=== PATIENT | male | born 1975 | race Caucasian/White ===

== ENCOUNTER 2017-06-26 13:50 | Emergency (ER) | payer SELFPAY ==
[2017-06-26] MEDS ORDERED: REGLAN IV ONE (15:43)
[2017-06-26] MEDS ORDERED: TYLENOL PO ONE (15:44)
[2017-06-26] MEDS ORDERED: BENADRYL IV ONE (15:44)
[2017-06-26] MEDS ORDERED: NACL 0.9% 1000 ML 1,000 ML IV ONE (15:44)
--- NOTE | 2017-06-26 15:45 | Emergency Department Report ---
ED Headache HPI - General Chief Complaint: Headache Stated Complaint: HEAD INJURY Time Seen by Provider: 06/26/17 14:54 - History of Present Illness Initial Comments: 42-year-old male past medical history none presents with complaint of 3 weeks of persistent worsening headache. Denies any head trauma denies fever chills photo or phonophobia. Denies nausea vomiting neck rigidity abdominal pain chest pain. States the headache is bothersome and makes him feels anxious. Patient is [place]andan-speaking which I speak fluently. Denies any recent falls or head trauma. Quality: moderate Head Injury Location: frontal Recent Head Trauma: no recent headache/trauma Modifying Factors: improves with: cold therapy Associated Symptoms: denies symptoms Allergies/Adverse Reactions: Allergies No Known Allergies Allergy (Unverified 06/26/17 13:59) Home Medications: Ambulatory Orders Amoxicillin [Trimox CAP] 500 mg PO Q8H #21 capsule 06/26/17 Metoclopramide [Reglan] 10 mg PO TID PRN #9 tab 06/26/17 Naproxen [Naprosyn TAB] 375 mg PO BID PRN #30 tablet 06/26/17 ED Review of Systems ROS: Stated complaint: HEAD INJURY Other details as noted in HPI Constitutional: denies: chills, fever Eyes: denies: eye pain, eye discharge, vision change ENT: denies: ear pain, throat pain Respiratory: denies: cough, shortness of breath, wheezing Cardiovascular: denies: chest pain, palpitations Endocrine: no symptoms reported Gastrointestinal: denies: abdominal pain, nausea, diarrhea Genitourinary: denies: urgency, dysuria Musculoskeletal: denies: back pain, joint swelling, arthralgia Skin: denies: rash, lesions Neurological: headache. denies: weakness, paresthesias Psychiatric: denies: anxiety, depression Hematological/Lymphatic: denies: easy bleeding, easy bruising ED Past Medical Hx - Past Medical History Previous Medical History?: No - Surgical History Past Surgical History?: No - Social History Smoking Status: Current Every Day Smoker Substance Use Type: Alcohol - Medications Home Medications: Home Medications Medication Instructions Recorded Confirmed Last Taken Type Amoxicillin [Trimox CAP] 500 mg PO Q8H #21 capsule 06/26/17 Unknown Rx Metoclopramide [Reglan] 10 mg PO TID PRN #9 tab 06/26/17 Unknown Rx Naproxen [Naprosyn TAB] 375 mg PO BID PRN #30 tablet 06/26/17 Unknown Rx ED Physical Exam - General Limitations: No Limitations General appearance: alert, in no apparent distress - Head Head exam: Present: atraumatic, normocephalic - Eye Eye exam: Present: normal appearance, PERRL, EOMI - ENT ENT exam: Present: mucous membranes moist - Neck Neck exam: Present: normal inspection - Respiratory Respiratory exam: Present: normal lung sounds bilaterally. Absent: respiratory distress - Cardiovascular Cardiovascular Exam: Present: regular rate, normal rhythm. Absent: systolic murmur, diastolic murmur, rubs, gallop - GI/Abdominal GI/Abdominal exam: Present: soft, normal bowel sounds - Rectal Rectal exam: Present: deferred - Extremities Exam Extremities exam: Present: normal inspection - Back Exam Back exam: Present: normal inspection - Neurological Exam Neurological exam: Present: alert, oriented X3, CN II-XII intact, normal gait - Expanded Neurological Exam Expanded Patient oriented to: Present: person, place, time Cranial nerves: EOM's Intact: Normal, Facial Sensation: Normal Cerebellar function: Finger to Nose: Normal, Heel to Lara: Normal, Romberg: Normal Sensory exam: Upper Extremity Light Touch: Normal, Upper Extremity Pin Prick: Normal, Lower Extremity Light Touch: Normal, Lower Extremity Pin Prick: Normal Motor strength exam: RUE: 5, LUE: 5, RLE: 5, LLE: 5 Best Eye Response (Seymour): (4) open spontaneously Best Motor Response (Jarred): (6) obeys commands Best Verbal Response (Seymour): (5) oriented Jarred Total: 15 - Psychiatric Psychiatric exam: Present: normal affect, normal mood - Skin Skin exam: Present: warm, dry, intact, normal color. Absent: rash ED Course Vital Signs 06/26/17 13:59 Temperature 99 F Pulse Rate 113 H Respiratory 16 Rate Blood Pressure 119/83 O2 Sat by Pulse 94 Oximetry ED Medical Decision Making - Medical Decision Making A/P: Migraine headache 1-case discussed with Dr. Mcclellan for discharge 2-naproxen when necessary, Reglan when necessary 3-follow-up with primary care and neurology. I provided patient with follow-up information for both 4- I explained to patient that a CT head shows encephalomalacia and printed out information for him about migraine headaches and encephalomalacia in [place]an for him to understand. Cranial nerves 2, 3, 4, 5, 6, 7, 8,10, 11, 12 intact on clinical exam, patient is fully lucid awake alert and oriented 3 conversant. Denies any upper or lower extremity paresthesias and has 5/5 strength in bilateral upper and lower extremities on clinical exam. Critical care attestation.: If time is entered above; I have spent that time in minutes in the direct care of this critically ill patient, excluding procedure time. ED Disposition Clinical Impression: Migraine headache Qualifiers: Migraine type: without aura Status migrainosus presence: without status migrainosus Intractability: not intractable Qualified Code(s): G43.009 - Migraine without aura, not intractable, without status migrainosus Sinusitis Qualifiers: Sinusitis location: frontal Chronicity: acute Recurrence: non-recurrent Qualified Code(s): J01.10 - Acute frontal sinusitis, unspecified Disposition: - TO HOME OR SELFCARE Is pt being admited?: No Does the pt Need Aspirin: No Condition: Stable Instructions: Sinusitis (ED), Migraine Headache (ED), Acute Headache (ED), Naproxen (By mouth), Metoclopramide (By mouth) Additional Instructions: [email or web address] Prescriptions: Amoxicillin [Trimox CAP] 500 mg PO Q8H #21 capsule Metoclopramide [Reglan] 10 mg PO TID PRN #9 tab PRN Reason: Headache Naproxen [Naprosyn TAB] 375 mg PO BID PRN #30 tablet PRN Reason: Headache Referrals: [facility] [Outside] - 3-5 Days Forms: Work/School Release Form(ED) Time of Disposition: 17:51 Print Language: CAPE VERDEAN
--- NOTE | 2017-06-26 16:26 | Cat Scan Report ---
FINAL REPORT EXAM: CT HEAD/BRAIN WO CON HISTORY: anteriro headache, throbbing, severe TECHNIQUE: CT examination of the head without IV contrast PRIORS: None. FINDINGS: Mucosal thickening right frontal sinus with suggestion of nonspecific small fluid level. Mucosal thickening also noted in right frontoethmoidal recess. Other paranasal sinuses are clear as are the mastoid air cells and middle ear cavities. Abnormal asymmetric hypodensity is nonspecific in the anteromedial aspect of the right frontal lobe primarily involving subcortical white matter but also involving a small portion of cortex. There appears to be encephalomalacia and volume loss in this region suggesting an old chronic process. A small acute or subacute component cannot be excluded. Nonspecific scattered meningeal calcifications may be from prior infection or trauma. These are most prominent in a sulcus within the medial left parietal lobe. Bone windows demonstrate no acute fracture. The brain is without mass, mass effect, or hemorrhage. There is no extra-axial intracranial bleed, brain bleed, or midline shift. The ventricles and sulci are age-appropriate. IMPRESSION: Hypodensity appears chronic in the anterior medial right frontal lobe given encephalomalacia and volume loss. Since symptoms are anterior, consider follow-up brain MRI to exclude a subacute or acute component. Mucosal thickening right frontal sinus and right frontoethmoidal recess with suggestion of small fluid level in the right frontal sinus. This may reflect right frontal acute sinusitis Chronic appearing scattered punctate meningeal calcifications may be related to prior infection or trauma
[2017-06-26 18:13] VITALS: BP 104/66
== END 2017-06-26 18:12 | disposition home or self-care (01) ==
LOC: ED 13:50
DX: G43.009 Migraine without aura, not intractable, without status migrainosus (principal); J01.10 Acute frontal sinusitis, unspecified; F17.200 Nicotine dependence, unspecified, uncomplicated
CPT/HCPCS: 70450; 96361; 96374; 96375; 99283; J1200; J2765; J7030

== ENCOUNTER 2017-06-28 01:01 | Emergency (ER) | payer OTHER ==
[~2017-06-28 01:01] MED LIST: ADRENALIN ONE; CORDARONE IV ONE; NARCAN 2 MG/2 ML ONE; SODIUM BICARBONATE IV ONE
[2017-06-28] MEDS ORDERED: NACL 0.9% 1000 ML 2,000 ML ONE (01:13)
[2017-06-28] MEDS ORDERED: NACL 0.9% 1000 ML 1,000 ML IV ONE (01:18)
[2017-06-28] MEDS ORDERED: ATIVAN IV ONE (01:20)
--- NOTE | 2017-06-28 01:21 | Emergency Department Report ---
ED Altered Mental Status HPI - General Stated Complaint: CHEST PAIN Time Seen by Provider: 06/28/17 01:18 Source: carton wrapper - History of Present Illness Initial Comments: Episode of unresponsiveness brought to triage without pulse or spontaneous respirations recent history states recent ?cocaine use patient was seen here yesterday for migraine headaches brother speaks no Andorran language line was utilized says that patient denies drug or alcohol use was brought back to the ER today because he wasn't getting better patient was never able to give a history MD Complaint: altered mental status, decreased responsiveness -: unknown Severity: Unable to Determine Consistency of Symptoms: waxing and waning, unknown Associated Symptoms: denies other symptoms, other (no further history is available from the patient's family and patient is unresponsive) - Related Data Previous Rx's Medication Instructions Recorded Last Taken Type Amoxicillin [Trimox CAP] 500 mg PO Q8H #21 capsule 06/26/17 Unknown Rx Metoclopramide [Reglan] 10 mg PO TID PRN #9 tab 06/26/17 Unknown Rx Naproxen [Naprosyn TAB] 375 mg PO BID PRN #30 tablet 06/26/17 Unknown Rx Allergies Allergy/AdvReac Type Severity Reaction Status Date / Time No Known Allergies Allergy Verified 06/28/17 01:17 ED Review of Systems ROS: Stated complaint: CHEST PAIN Other details as noted in HPI Comment: Unobtainable due to pts medical conditions ED Past Medical Hx - Past Medical History Previous Medical History?: No - Social History Smoking Status: Current Every Day Smoker Substance Use Type: Alcohol - Medications Home Medications: Home Medications Medication Instructions Recorded Confirmed Last Taken Type Amoxicillin [Trimox CAP] 500 mg PO Q8H #21 capsule 06/26/17 Unknown Rx Metoclopramide [Reglan] 10 mg PO TID PRN #9 tab 06/26/17 Unknown Rx Naproxen [Naprosyn TAB] 375 mg PO BID PRN #30 tablet 06/26/17 Unknown Rx ED Physical Exam - General Limitations: Language Barrier General appearance: obtunded - Head Head exam: Present: atraumatic, normocephalic - Eye Eye exam: Present: PERRL, EOMI Pupils: Present: mydriatic - ENT ENT exam: Present: other (no spontaneous respirations) - Neck Neck exam: Present: normal inspection. Absent: tenderness, meningismus - Respiratory Respiratory exam: Present: respiratory distress, rhonchi, other (no spontaneous respirations) - Cardiovascular Cardiovascular Exam: Present: other (without pulse without heart tones) - GI/Abdominal GI/Abdominal exam: Present: distended. Absent: pulsatile mass - Extremities Exam Extremities exam: Present: other (pallor delayed capillary refill) - Neurological Exam Neurological exam: Present: other (unresponsive to stimuli both verbal and painful) - Skin Skin exam: Present: cyanosis, pallor - Assessment Assessment Interval: Baseline - Level of Consciousness 1a. Level of Consciousness: responds reflex/autonomic - LOC Questions 1b. LOC Questions: answers no questions correctly - LOC Command 1c. LOC Commands: performs no tasks correctly - Best Gaze 2. Best Gaze: partial gaze palsy - Motor Arm 5b. Motor Arm Right: no movement 5a. Motor Arm Left: no movement - Motor Leg 6a. Motor Leg Left: no movement 6b. Motor Leg Right: no movement - Best Language 9. Best Language: mute/global aphasia - Dysarthria 10. Dysarthria: intubated or other barrier ED Course Vital Signs 06/28/17 06/28/17 06/28/17 01:08 01:11 01:15 Pulse Rate 114 H 70 59 L Respiratory 14 Rate Blood Pressure Blood Pressure 122/100 116/89 [Right] 06/28/17 06/28/17 06/28/17 01:16 01:30 01:46 Pulse Rate 111 H 86 Respiratory 20 19 120 H Rate Blood Pressure 122/100 116/89 193/169 Blood Pressure [Right] 06/28/17 02:00 Pulse Rate 135 H Respiratory 34 H Rate Blood Pressure 132/75 Blood Pressure [Right] - Intubation Time Out Performed: Yes Laryngoscope: Mavis Size: 4 Assist Device Used: Bougie ET Tube Size: 7.5 Tube Placement Confirmation: visualized tube passing t, equal breath sounds bilat, confirmation by capnometr Patient Tolerated Procedure: well Intubation Complications: none - Lab Data Result diagrams: 06/28/17 01:39 Lab Results 06/28/17 06/28/17 06/28/17 Range/Units 01:16 01:39 01:39 Sodium 136 L (137-145) mmol/L Potassium 4.6 (3.6-5.0) mmol/L Chloride 94.6 L (98-107) mmol/L Carbon Dioxide 3 L* (22-30) mmol/L Anion Gap 43 mmol/L BUN 35 H (9-20) mg/dL Creatinine 1.7 H (0.8-1.5) mg/dL Estimated GFR 44 ml/min BUN/Creatinine Ratio 21 % Glucose 217 H (75-100) mg/dL POC Glucose 192 H (70-105) Calcium 8.2 L (8.4-10.2) mg/dL Total Bilirubin 0.40 (0.1-1.2) mg/dL Direct Bilirubin < 0.2 (0-0.2) mg/dL Indirect Bilirubin 0.2 mg/dL AST 63 H (5-40) units/L ALT 45 (7-56) units/L Alkaline Phosphatase 157 H (35-129) units/L Total Creatine Kinase 151 (55-170) units/L Troponin T 0.170 H* (0.00-0.029) ng/mL Total Protein 6.6 (6.3-8.2) g/dL Albumin 2.9 L (3.9-5) g/dL Albumin/Globulin Ratio 0.8 % TSH 2.170 (0.270-4.200) mlU/mL Urine Bilirubin (Negative) Urine RBC (Auto) (0.0-6.0) /HPF U Epithel Cells (Auto) (0-13.0) /HPF Urine Sperm (CAKE WASHER) /HPF Salicylates (2.8-20.0) mg/dL Urine Opiates Screen Urine Methadone Screen Ur Barbiturates Screen Ur Phencyclidine Scrn Ur Amphetamines Screen U Benzodiazepines Scrn Urine Cocaine Screen U Marijuana (THC) Screen 06/28/17 06/28/17 06/28/17 Range/Units 01:39 02:21 02:21 Sodium (137-145) mmol/L Potassium (3.6-5.0) mmol/L Chloride (98-107) mmol/L Carbon Dioxide (22-30) mmol/L Anion Gap mmol/L BUN (9-20) mg/dL Creatinine (0.8-1.5) mg/dL Estimated GFR ml/min BUN/Creatinine Ratio % Glucose (75-100) mg/dL POC Glucose (70-105) Calcium (8.4-10.2) mg/dL Total Bilirubin (0.1-1.2) mg/dL Direct Bilirubin (0-0.2) mg/dL Indirect Bilirubin mg/dL AST (5-40) units/L ALT (7-56) units/L Alkaline Phosphatase (35-129) units/L Total Creatine Kinase (55-170) units/L Troponin T (0.00-0.029) ng/mL Total Protein (6.3-8.2) g/dL Albumin (3.9-5) g/dL Albumin/Globulin Ratio % TSH (0.270-4.200) mlU/mL Urine Bilirubin Neg (Negative) Urine RBC (Auto) 133.0 (0.0-6.0) /HPF U Epithel Cells (Auto) 2.0 (0-13.0) /HPF Urine Sperm 3+ (CAKE WASHER) /HPF Salicylates < 0.3 L (2.8-20.0) mg/dL Urine Opiates Screen Presumptive negative Urine Methadone Screen Presumptive negative Ur Barbiturates Screen Presumptive negative Ur Phencyclidine Scrn Presumptive negative Ur Amphetamines Screen Presumptive negative U Benzodiazepines Scrn Presumptive negative Urine Cocaine Screen Presumptive negative U Marijuana (THC) Screen Presumptive negative - Radiology Data Radiology results: pending - Medical Decision Making Limited history available patient to proceed to go into a asystolic arrest, ACLS protocol was utilized. Patient was intubated as per the procedure note. Patient did give recovery of pulses however he proceeded to lose them on 2 more occasions fully ACLS protocol was utilized. There was never any return of spontaneous circulation. He did have essentially PDA which ended up in asystole. Ultrasound was utilized to examine for cardiac activity and there was none despite 35 minutes of ACLS. Efforts were deemed futile patient was pronounced. He was noted to have a coffee grounds in a NG tube and then placed family was made aware Critical Care Time: Yes Critical care time in (mins) excluding proc time.: 45 Critical care attestation.: If time is entered above; I have spent that time in minutes in the direct care of this critically ill patient, excluding procedure time. ED Disposition Clinical Impression: Cardiac asystole, Cardiopulmonary arrest Disposition: DC-20 Is pt being admited?: No Condition: Stable Referrals: ANANT SULTANA MD [Primary Care Provider] - 3-5 Days Time of Disposition: 03:01
[2017-06-28] MEDS ORDERED: VASELINE LIP THERAPY TP PRN ×2 (01:29→02:26)
[2017-06-28] MEDS ORDERED: ARTIFICIAL TEARS OPHTH OINT OU PRN ×2 (01:29→02:26)
[2017-06-28] MEDS ORDERED: ATIVAN 100 MG in NACL 0.9% 50 ML, VIAFLEX EMPTY CONTAINER 0 ML IV SCH (02:00)
[2017-06-28 02:16] VITALS: BP 132/75
[2017-06-28 02:28] LABS: Alanine Aminotransferase 45 units/L (7-56); Albumin 2.9 g/dL (3.9-5); BUN/Creatinine Ratio 21; Blood Urea Nitrogen 35 mg/dL (9-20); Calcium 8.2 mg/dL (8.4-10.2); Hemolysis Index 27
[2017-06-28 02:31] LABS: Bilirubin,Direct < 0.2 mg/dL (0-0.2)
[2017-06-28 02:41] LABS: Bacteria,Urine 4+ /HPF (Negative); Bilirubin,Urine NEG (Negative); Blood,Urine MOD (Negative); Color,Urine Amber (Yellow); Hyaline Casts,Urine 92 /LPF; Mucus,Urine 3+ /HPF; Sperm,Urine 3+ /HPF (NP)
[2017-06-28 02:43] LABS: Amphetamine Screen,Urine PRESUMPTIVE NEGATIVE; Benzodiazepines Screen,Urine PRESUMPTIVE NEGATIVE; Cannabinoid Screen,Urine PRESUMPTIVE NEGATIVE; Cocaine Screen,Urine PRESUMPTIVE NEGATIVE; Methadone Screen,Urine PRESUMPTIVE NEGATIVE; Opiate Screen,Urine PRESUMPTIVE NEGATIVE
[2017-06-28 02:58] LABS: Chol/HDL Ratio 6.44 %; HDL Cholesterol 18 mg/dL (40-59); LDL Cholesterol,Direct 70 mg/dL (50-130)
[2017-06-28] MEDS ORDERED: NACL 0.9% 500 ML IV SCH (03:00)
[2017-06-28] MEDS ORDERED: NARCAN 2 MG/2 ML ONE (23:00)
== END 2017-06-28 04:30 ==
LOC: ED 01:01
DX: I46.9 Cardiac arrest, cause unspecified (principal); F17.200 Nicotine dependence, unspecified, uncomplicated; G43.909 Migraine, unspecified, not intractable, without status migrainosus
CPT/HCPCS: 31500; 36415; 80053; 80061; 80074; 80307; 81001; 82550; 82962; 84443; 84484; 92950; 93005; 93010; 96361; 96374; 99291; G0480; J0171; J0282; J2060; J2310; J7030; 80320; 94002